=== PATIENT | female | born 1985 | race Caucasian/White ===

== ENCOUNTER 2017-01-07 11:49 | Day surgery (SDC) | payer MEDICAID ==
[~2017-01-07] VITALS: Ht 170.2 cm; Wt 81.6 kg
[~2017-01-07 11:49] MED LIST: ALEVE220 M2 PO; AMOXICILLIN500 M1 PO; BIRTH CONTROL PILLS; CALCITRATE + V1 EAC1 PO; CPAP; FERROUS FUMARA324 M1 PO; INDERAL XL80 MG PO; LEXAPRO20 M2 PO; LINZESS145 MC1 PO; MELOXICAM15 M1 PO; OMEPRAZOLE40 M2 PO; PRILOSEC20 MG PO; VITAMIN B125000 MCG PO; VITAMIN D35000 UNI2 PO
[2017-01-07 13:00] LABS: HCT-HEMATOCRIT 36.5 % (34.0-49.0); HGB-HEMOGLOBIN 12.2 gm/dl (12.0-15.5); MCV (MEAN CELL VOLUME) 85.3 fl (82.0-96.0); RED CELL DISTRIBUTION WIDTH 14.4 % (12.4-16.4)
[2017-01-07 13:17] LABS: ANION GAP 9 mmol/L (0-20); BLOOD UREA NITROGEN 11 mg/dl (6-24); CALCIUM 8.8 mg/dl (8.5-10.5); CARBON DIOXIDE-VENOUS 26 mmol/L (22-32); CHLORIDE 108 mmol/l (96-110); CREATININE 0.67 mg/dl (0.50-1.10); GLUCOSE 79 mg/dL (70-110); POTASSIUM 4.2 mmol/L (3.7-5.1); SODIUM 139 mmol/L (135-145); eGFR VALUE FOR BLACK >90 mL/Min
== END 2017-01-07 14:00 ==
LOC: SHSB 11:49 → WSU 11:49
PROVIDERS: Anesthesiology; Obstetrics & Gynecology
DX: N83.201 Unspecified ovarian cyst, right side (principal); Z53.9 Procedure and treatment not carried out, unspecified reason